=== PATIENT | female | born 1990 | race Caucasian/White ===

== ENCOUNTER 2017-09-04 15:47 | Emergency (ER) | payer OTHER ==
[2017-09-04 15:57] VITALS: RESP 16
--- NOTE | 2017-09-04 17:18 | ED ---
General Adult HPI - General Chief complaint: Psychiatric Symptoms Stated complaint: suicidal Time Seen by Provider: 09/04/17 16:08 Source: patient, family, RN notes reviewed Mode of arrival: ambulatory Limitations: no limitations - History of Present Illness Initial comments: Chief complaint and history of present illness a 27-year-old female here for complaint of depression and suicidal thoughts of driving his car into a tree. Patient reports her car didn't work very well she is not able to visit with her kids she's not able to get her psychiatric medications. The patient reports she 's had been having difficulty coping with being out of snf which she spent one year in snf up until this past June. Patient had a past history of heroin addiction. One week ago she did use amphetamine because she could not get her psychiatric medications. She states she is missing a parole visit today. - Related Data Home Medications Medication Instructions Recorded Confirmed No Known Home Medications [No 09/04/17 09/04/17 Known Home Medications] Allergies Allergy/AdvReac Type Severity Reaction Status Date / Time No Known Allergies Allergy Verified 09/04/17 16:17 Review of Systems ROS Statement: Those systems with pertinent positive or pertinent negative responses have been documented in the HPI. Review of systems. Patient denies any headache or visual acuity change no chest pain shortness breath GI/ problems. Emotionally the patient reports she is depressed and having suicidal thoughts. All systems reviewed. Past medical problems significant for depression and anxiety. Used to be on medication for bipolar disorder. She reports that she was offered medications one year prior to going to snf while in snf she was not prescribed any medications. She states that her family physician prescribed Wellbutrin and Zyprexa several weeks ago but because of problems with her insurance she was able to get them from the pharmacy. She reported that because she was depressed and anxious he did use some amphetamine. This was 1 week ago. Denies restarting heroin. The patient's surgeries are none. States she has an aortic valve issue though the heart sounds are normal to auscultation. No family history of cancers or depression. Patient denies any ALLERGIES. The patient does smoke strongly encouraged stop and denies alcohol use. ROS Other: All systems not noted in ROS Statement are negative. Past Medical History Additional Past Medical History / Comment(s): hypoglycemia, bicuspidaostic heart valve disease. OB history: she has had one previous vaginal delivery and this is second . She has had care with Dr Pimentel. History of Any Multi-Drug Resistant Organisms: None Reported Past Surgical History: No Surgical Hx Reported Past Anesthesia/Blood Transfusion Reactions: No Reported Reaction Past Psychological History: Bipolar, Depression Smoking Status: Current every day smoker Past Alcohol Use History: None Reported Past Drug Use History: None Reported - Past Family History Mother Family Medical History: No Reported History General Exam - General Exam Comments Initial Comments: General: The patient is awake and alert, states he's depressed and anxious. Has a past history of bipolar disorder. Vital signs are temperature 97.5 pulse 97 respiratory rate 16 pulse ox 90% room air blood pressure 121/91 Eye: Pupils are equal, round and reactive to light, extra-ocular movements are intact ; there is normal conjunctiva bilaterally. No signs of icterus. Ears, nose, mouth and throat: There are moist mucous membranes and no oral lesions. Neck: The neck is supple, there is no tenderness on no thyroid not enlarged, no anterior cervical lymphadenopathy. Cardiovascular: There is a regular rate and rhythm. No murmur, rub or gallop is appreciated. Respiratory: Lungs are clear to auscultation, respirations are non-labored, breath sounds are equal. No wheezes, stridor, rales, or rhonchi. Gastrointestinal: Soft, non-distended, non-tender abdomen without masses or organomegaly noted. There is no rebound or guarding present. No CVA tenderness. Bowel sounds are unremarkable. Back: There is no tenderness to palpation in the midline. There is no obvious deformity. No rashes noted. Musculoskeletal: Normal ROM, no tenderness, There is no pedal edema. There is no calf tenderness or swelling. Sensation intact. Pulses equal bilaterally 2+. Neurological: Denies any numbness or tingling. Skin: Skin is warm and dry and no rashes or lesions are noted. Psychiatric: Cooperative, states she is depressed, suicidal thoughts of running her car into a tree. Past history of heroin addiction. Spent one year in snf. Limitations: no limitations Course Vital Signs 09/04/17 15:54 Temperature 97.5 F L Pulse Rate 97 Respiratory 16 Rate Blood Pressure 121/91 O2 Sat by Pulse 98 Oximetry Medical Decision Making - Medical Decision Making Medical decision-making. This is a 27 show female here with complaint of depression. She also stated that she used methamphetamines one week ago. She went to her parole office today. Patient states she was having difficulty getting a hold of her medications. Psychiatric nurse interviewed the patient. The nurse spoke with the psychiatrist at this time the patient is being discharged to care of her fianc . She will follow up with [facility]. Also she is to call and go to the pharmacy where she had the prescriptions waiting for her and she was instructed as to how to tile picker the medications by getting her name off her mother's insurance and using her own current insurance. On discharge patient denies being suicidal. Was advised to return emergency room if she has any problems - Lab Data Lab Results 09/04/17 09/04/17 Range/Units 16:05 16:05 Urine HCG, Qual Not Detected (Not Detectd) Urine Opiates Screen Not Detected (NotDetected) Ur Oxycodone Screen Not Detected (NotDetected) Urine Methadone Screen Not Detected (NotDetected) Ur Propoxyphene Screen Not Detected (NotDetected) Ur Barbiturates Screen Not Detected (NotDetected) U Tricyclic Antidepress Not Detected (NotDetected) Ur Phencyclidine Scrn Not Detected (NotDetected) Ur Amphetamines Screen Not Detected (NotDetected) U Methamphetamines Scrn Detected H (NotDetected) U Benzodiazepines Scrn Not Detected (NotDetected) Urine Cocaine Screen Not Detected (NotDetected) U Marijuana (THC) Screen Not Detected (NotDetected) Disposition Clinical Impression: Depression, Methamphetamine abuse Disposition: HOME SELF-CARE Condition: Fair Instructions: Depression (ED) Additional Instructions: Follow-up with community mental health as arranged. Go to the pharmacy and get urine name off mother's insurance unusual home to tile picker. Medications. Follow -up with family physician. Return emergency room if he have any problems. Referrals: César Ross MD [Primary Care Provider] - 1-2 days Time of Disposition: 18:50
[2017-09-04 17:31] LABS: Amphetamine Screen,Urine Not Detected (NotDetected); Barbiturate Screen,Urine Not Detected (NotDetected); Benzodiazepines Screen,Urine Not Detected (NotDetected); Cocaine Screen,Urine Not Detected (NotDetected); Methadone Screen, Urine Not Detected (NotDetected); Opiate Screen,Urine Not Detected (NotDetected); Oxycodone Screen, Urine Not Detected (NotDetected); Phencyclidine Screen,Urine Not Detected (NotDetected); Tricyclic Antidepressant,Urine Not Detected (NotDetected); Urn Cannabinoid Scrn Not Detected (NotDetected)
[2017-09-04 18:56] VITALS: BP 112/59; PULSE 73; TEMP 97.8
== END 2017-09-04 19:02 | disposition home or self-care (01) ==
LOC: EC 15:47
DX: F32.9 Major depressive disorder, single episode, unspecified (principal); F15.10 Other stimulant abuse, uncomplicated; R45.851 Suicidal ideations; F17.200 Nicotine dependence, unspecified, uncomplicated
CPT/HCPCS: 80306; 81025; 82075; 99284

== ENCOUNTER 2017-10-08 13:09 | Emergency (ER) | payer OTHER ==
--- NOTE | 2017-10-08 13:28 | ED ---
Skin/Abscess/FB HPI - General Chief complaint: Skin/Abscess/Foreign Body Stated complaint: Infected Tattoo Time Seen by Provider: 10/08/17 13:22 Source: patient, RN notes reviewed Mode of arrival: ambulatory Limitations: no limitations - History of Present Illness Initial comments: This is a 27-year-old female who presents to the emergency department with chief complaint of infected tattoo. Patient states that 2 nights ago she was at friends house and received a tattoo on the top of her right foot. Patient states that since that time there has been pain and swelling. Patient states that she has difficulty ambulating due to the pain. She states that she has been taking ibuprofen. Patient does admit to being intoxicated at the time and she states she wishes she had not gotten a tattoo. Denies any fevers or chills , chest pain or shortness breath, abdominal pain, nausea or vomiting. - Related Data Previous Rx's Medication Instructions Recorded Cephalexin [Keflex] 500 mg PO Q12HR #20 cap 10/08/17 Sulfamethox-Tmp 800-160Mg [Bactrim 1 tab PO Q12HR #20 tab 10/08/17 DS 800-160 mg] Allergies Allergy/AdvReac Type Severity Reaction Status Date / Time No Known Allergies Allergy Verified 09/04/17 16:17 Review of Systems ROS Statement: Those systems with pertinent positive or pertinent negative responses have been documented in the HPI. ROS Other: All systems not noted in ROS Statement are negative. Past Medical History Additional Past Medical History / Comment(s): hypoglycemia, bicuspidaostic heart valve disease. OB history: she has had one previous vaginal delivery and this is second . She has had care with Dr Pimentel. History of Any Multi-Drug Resistant Organisms: None Reported Past Surgical History: No Surgical Hx Reported Past Anesthesia/Blood Transfusion Reactions: No Reported Reaction Past Psychological History: Bipolar, Depression Smoking Status: Current every day smoker Past Alcohol Use History: None Reported Past Drug Use History: None Reported - Past Family History Mother Family Medical History: No Reported History General Exam - General Exam Comments Initial Comments: General: Awake and alert, well-developed; in no apparent distress. HEENT: Head atraumatic, normocephalic. Pupils are equal, round and reactive to light. Extraocular movements intact. Oropharynx moist without erythema or exudate. Neck: Supple. Normal ROM. Cardiovascular: Regular rate and rhythm. No murmurs, rubs or gallops. Chest symmetrical. Respiratory: Lungs clear to auscultation bilaterally. No wheezes, rales or rhonchi. Normal respiratory effort with no use of accessory muscles. Musculoskeletal: Normal range of motion of the right foot. There is a new tattoo overlying dorsal aspect of the right foot with surrounding erythema, swelling and warmth. Sensation is intact. Pedal pulses are 2+ equal and palpable bilaterally. Skin: [place], warm and dry. Neurological: Alert and oriented x3. CN II-XII grossly intact. Speech is fluent and answers are appropriate. No focal neuro deficits. Psychiatric: Normal mood and affect. No overt signs of depression or anxiety noted. Course Vital Signs 10/08/17 13:22 Temperature 97.3 F L Pulse Rate 92 Respiratory 18 Rate Blood Pressure 120/58 O2 Sat by Pulse 97 Oximetry Medical Decision Making - Medical Decision Making This is a 27-year-old female who presents to the emergency department with chief complaint of infected tattoo. Patient received a a tattoo on the dorsal aspect of her right foot 2 nights ago by a friend. Patient's right foot is now swollen, erythematous, warm and tender. No fever or chills. Patient will be started on Bactrim and Keflex. I educated patient that she needs to take the full course of antibiotics. She is to return to the emergency department if there are worsening in symptoms or if she notices red streaking on her leg. Patient is in agreement. She is in no acute distress and will be discharged home. All questions answered. Disposition Clinical Impression: Cellulitis of foot, Tattoo reaction Disposition: HOME SELF-CARE Condition: Good Instructions: Cellulitis (ED) Additional Instructions: Please monitor and return to the emergency department if you notice any red streaking of the leg. Please apply ice. Please take medications as prescribed. Please follow up with primary care provider within 1-2 days. Return to emergency department if symptoms should worsen or any concerns arise. Prescriptions: Cephalexin [Keflex] 500 mg PO Q12HR #20 cap Sulfamethox-Tmp 800-160Mg [Bactrim DS 800-160 mg] 1 tab PO Q12HR #20 tab Referrals: César Ross MD [Primary Care Provider] - 1-2 days Time of Disposition: 13:41
[2017-10-08 13:29] VITALS: TEMP 97.3
[2017-10-08 13:50] VITALS: BP 127/87; PULSE 87; RESP 17
== END 2017-10-08 13:48 | disposition home or self-care (01) ==
LOC: EC 13:09
DX: L03.115 Cellulitis of right lower limb (principal); L81.8 Other specified disorders of pigmentation
CPT/HCPCS: 99283

== ENCOUNTER 2019-11-22 08:11 | Emergency (ER) | payer OTHER ==
[2019-11-22 08:18] VITALS: RESP 18
[2019-11-22] MEDS ORDERED: SODIUM CHLORIDE 0.9% 1,000 ML IV STA ×2 (08:28)
[2019-11-22] MEDS ORDERED: LORazepam 2 MG/ML INJ IV STA (08:29)
--- NOTE | 2019-11-22 08:35 | ED ---
Weakness HPI - General Chief complaint: Weakness Stated complaint: altered Time Seen by Provider: 11/22/19 08:20 Source: patient, RN notes reviewed, old records reviewed Mode of arrival: wheelchair Limitations: no limitations - History of Present Illness Initial comments: Patient is a 29-year-old female who presents emergency department today with multiple complaints. She states that she still somewhat disoriented and having convulsions and shaking. She does report taking "acid" 10 hours ago and using marijuana. She reports that she takes acid frequently does not had a bad experience such as this today. Patient states that she has also been treated for trichomonas recently complains some lower abdominal pain and dysuria. She also states that her last menstrual period was a week ago. She states that she's feeling slightly dizzy and lightheaded and anxious. - Related Data Previous Rx's Medication Instructions Recorded Doxycycline [Vibramycin] 100 mg PO BID 14 Days #28 capsule 11/22/19 Allergies Allergy/AdvReac Type Severity Reaction Status Date / Time No Known Allergies Allergy Verified 11/22/19 08:58 Review of Systems ROS Statement: Those systems with pertinent positive or pertinent negative responses have been documented in the HPI. ROS Other: All systems not noted in ROS Statement are negative. Past Medical History Additional Past Medical History / Comment(s): hypoglycemia, bicuspidaostic heart valve disease. OB history: she has had one previous vaginal delivery and this is second . She has had care with Dr Pimentel. History of Any Multi-Drug Resistant Organisms: None Reported Past Surgical History: No Surgical Hx Reported Past Anesthesia/Blood Transfusion Reactions: No Reported Reaction Past Psychological History: Bipolar, Depression Smoking Status: Current every day smoker Past Alcohol Use History: None Reported Past Drug Use History: None Reported - Past Family History Mother Family Medical History: No Reported History General Exam - General Exam Comments Initial Comments: 21-year-old female. Alert and oriented. Somewhat anxious. Limitations: no limitations General appearance: alert, in no apparent distress Head exam: Present: atraumatic, normocephalic, normal inspection Eye exam: Present: normal appearance, PERRL, EOMI. Absent: scleral icterus, conjunctival injection, periorbital swelling ENT exam: Present: normal exam, mucous membranes moist Neck exam: Present: normal inspection. Absent: tenderness, meningismus, lymphadenopathy Respiratory exam: Present: normal lung sounds bilaterally. Absent: respiratory distress, wheezes, rales, rhonchi, stridor Cardiovascular Exam: Present: regular rate, normal rhythm, normal heart sounds. Absent: systolic murmur, diastolic murmur, rubs, gallop, clicks GI/Abdominal exam: Present: soft, normal bowel sounds. Absent: distended, tenderness, guarding, rebound, rigid Extremities exam: Present: normal inspection, full ROM, normal capillary refill. Absent: tenderness, pedal edema, joint swelling, calf tenderness Back exam: Present: normal inspection Neurological exam: Present: alert, oriented X3, CN II-XII intact Psychiatric exam: Present: normal affect, normal mood Skin exam: Present: warm, dry, intact, normal color. Absent: rash Course Vital Signs 11/22/19 08:12 Temperature 98.1 F Pulse Rate 92 Respiratory 18 Rate Blood Pressure 120/76 O2 Sat by Pulse 100 Oximetry EKG Findings - EKG Comments: EKG Findings:: EKG shows normal sinus rhythm, normal EKG. Ventricular rate of 73 bpm. Intervals 126 ms. QS duration 76 ms. QTC is 426/469 ms. Medical Decision Making - Medical Decision Making Patient is a 29-year-old female, presents emergency Department somewhat anxious, agitated panicky. She does report to using acid last night. She's been feeling this way the past few hours. Patient seems to be having a panic attack related to acid intake. She also complains of some dysuria, and lower abdominal pain. She was treated with Flagyl for Trichomonas. It is unsure Patient was treated for other STDs. I discussed that we'll complete treatment this time since she is not aware of getting Rocephin or azithromycin. We will do urine culture and also discharge Patient with prescription for doxycycline for UTI and to cover for possible PID. She had no abdominal tenderness on exam. Patient advised to follow-up with a hardboard panel printer and to return to emergency department if any alarming signs or symptoms occur. - Lab Data Result diagrams: 11/22/19 08:41 11/22/19 08:41 Lab Results 11/22/19 11/22/19 11/22/19 Range/Units 08:40 08:41 08:41 WBC 12.2 H (3.8-10.6) k/uL RBC 5.17 (3.80-5.40) m/uL Hgb 10.5 L (11.4-16.0) gm/dL Hct 35.8 (34.0-46.0) % MCV 69.3 L (80.0-100.0) fL MCH 20.2 L (25.0-35.0) pg MCHC 29.2 L (31.0-37.0) g/dL RDW 16.5 H (11.5-15.5) % Plt Count 354 (150-450) k/uL Neutrophils % 82 % Lymphocytes % 12 % Monocytes % 5 % Eosinophils % 0 % Basophils % 0 % Neutrophils # 10.0 H (1.3-7.7) k/uL Lymphocytes # 1.5 (1.0-4.8) k/uL Monocytes # 0.6 (0-1.0) k/uL Eosinophils # 0.0 (0-0.7) k/uL Basophils # 0.0 (0-0.2) k/uL Hypochromasia Marked Anisocytosis Slight Microcytosis Marked Sodium 139 (137-145) mmol/L Potassium 4.0 (3.5-5.1) mmol/L Chloride 107 (98-107) mmol/L Carbon Dioxide 19 L (22-30) mmol/L Anion Gap 13 mmol/L BUN 12 (7-17) mg/dL Creatinine 0.65 (0.52-1.04) mg/dL Est GFR (CKD-EPI)AfAm >90 (>60 ml/min/1.73 sqM) Est GFR (CKD-EPI)NonAf >90 (>60 ml/min/1.73 sqM) Glucose 110 H (74-99) mg/dL Calcium 9.5 (8.4-10.2) mg/dL Magnesium 1.9 (1.6-2.3) mg/dL Total Bilirubin 0.3 (0.2-1.3) mg/dL AST 26 (14-36) U/L ALT 14 (4-34) U/L Alkaline Phosphatase 70 (38-126) U/L Total Protein 8.4 H (6.3-8.2) g/dL Albumin 4.8 (3.5-5.0) g/dL HCG, Qual Not Detected Urine Color Yellow Urine Appearance Cloudy H (Clear) Urine pH 5.5 (5.0-8.0) Ur Specific [place] 1.018 (1.001-1.035) Urine Protein Trace H (Negative) Urine Glucose (UA) Negative (Negative) Urine Ketones Trace H (Negative) Urine Blood Small H (Negative) Urine Nitrite Negative (Negative) Urine Bilirubin Negative (Negative) Urine Urobilinogen <2.0 (<2.0) mg/dL Ur Leukocyte Esterase Large H (Negative) Urine RBC 5 (0-5) /hpf Urine WBC 8 H (0-5) /hpf Ur Squamous Epith Cells 28 H (0-4) /hpf Urine Bacteria Rare H (None) /hpf Urine Mucus Many H (None) /hpf Urine Opiates Screen Not Detected (NotDetected) Ur Oxycodone Screen Not Detected (NotDetected) Urine Methadone Screen Not Detected (NotDetected) Ur Propoxyphene Screen Not Detected (NotDetected) Ur Barbiturates Screen Not Detected (NotDetected) U Tricyclic Antidepress Not Detected (NotDetected) Ur Phencyclidine Scrn Not Detected (NotDetected) Ur Amphetamines Screen Not Detected (NotDetected) U Methamphetamines Scrn Not Detected (NotDetected) U Benzodiazepines Scrn Not Detected (NotDetected) Urine Cocaine Screen Not Detected (NotDetected) U Marijuana (THC) Screen Detected H (NotDetected) - Radiology Data Radiology results: report reviewed Normal chest x-ray. Disposition Clinical Impression: LSD reaction, Panic anxiety syndrome, UTI (urinary tract infection) Disposition: HOME SELF-CARE Condition: Good Instructions (If sedation given, give patient instructions): Urinary Tract Infection in Women (ED) Additional Instructions: Please use medication as discussed. Please follow up with family doctor if symptoms have not improved over the next two days. Please return to the emergency room if your symptoms increase or worsen or for any other concerns. Prescriptions: Doxycycline [Vibramycin] 100 mg PO BID 14 Days #28 capsule Is patient prescribed a controlled substance at d/c from ED?: No Referrals: César Ross MD [STAFF PHYSICIAN] - 1-2 days Time of Disposition: 10:01
[2019-11-22 08:51] LABS: Anisocytosis Slight; Basophils % (A) 0 %; Eosinophils % (A) 0 %; HCT 35.8 % (34.0-46.0); HGB 10.5 gm/dL (11.4-16.0); Hypochromasia Marked; Lymphocytes # (A) 1.5 k/uL (1.0-4.8); Lymphocytes % (A) 12 %; MCH 20.2 pg (25.0-35.0); MCHC 29.2 g/dL (31.0-37.0); MCV 69.3 fL (80.0-100.0); Mean Platelet Volume 7.6; Microcytosis Marked; Monocytes # (A) 0.6 k/uL (0-1.0); Monocytes % (A) 5 %; Neutrophils % (A) 82 %; Platelet Count 354 k/uL (150-450); RBC 5.17 m/uL (3.80-5.40); RDW 16.5 % (11.5-15.5); WBC 12.2 k/uL (3.8-10.6)
[2019-11-22 08:59] LABS: HCG,Qualitative Serum Not Detected
[2019-11-22 09:04] LABS: ALT 14 U/L (4-34); AST 26 U/L (14-36); African American GFR (CKD) >90 (>60 ml/min/1.73 sqM); Albumin 4.8 g/dL (3.5-5.0); Alkaline Phosphatase 70 U/L (38-126); Anion Gap 13 mmol/L; Blood Urea Nitrogen 12 mg/dL (7-17); Calcium 9.5 mg/dL (8.4-10.2); Carbon Dioxide 19 mmol/L (22-30); Chloride 107 mmol/L (98-107); Glucose 110 mg/dL (74-99); Magnesium 1.9 mg/dL (1.6-2.3); Non-African American GFR(CKD) >90 (>60 ml/min/1.73 sqM); Sodium 139 mmol/L (137-145); Total Bilirubin 0.3 mg/dL (0.2-1.3); Total Protein 8.4 g/dL (6.3-8.2)
[2019-11-22 09:06] LABS: Appearance,Urine Cloudy (Clear); Bacteria,Urine Rare /hpf; Bilirubin,Urine Negative (Negative); Blood,Urine Small (Negative); Color,Urine Yellow; Glucose,Urine (UA) Negative (Negative); Ketones,Urine Trace (Negative); Leukocyte Esterase,Urine Large (Negative); Mucus,Urine Many /hpf; Nitrite,Urine Negative (Negative); PH, Urine 5.5 (5.0-8.0); Protein,Urine Trace (Negative); RBC,Urine 5 /hpf (0-5); Specific Gravity,Urine 1.018 (1.001-1.035); Squamous Epithelial Cell,Urine 28 /hpf (0-4); Urobilinogen,Urine <2.0 mg/dL (<2.0); WBC,Urine 8 /hpf (0-5)
[2019-11-22 09:08] LABS: Amphetamine Screen,Urine Not Detected (NotDetected); Barbiturate Screen,Urine Not Detected (NotDetected); Benzodiazepines Screen,Urine Not Detected (NotDetected); Cocaine Screen,Urine Not Detected (NotDetected); Methadone Screen, Urine Not Detected (NotDetected); Opiate Screen,Urine Not Detected (NotDetected); Oxycodone Screen, Urine Not Detected (NotDetected); Phencyclidine Screen,Urine Not Detected (NotDetected); Tricyclic Antidepressant,Urine Not Detected (NotDetected); Urn Cannabinoid Scrn Detected (NotDetected)
--- NOTE | 2019-11-22 09:16 | XR ---
EXAMINATION TYPE: XR chest 2V DATE OF EXAM: 11/22/2019 COMPARISON: 10/24/2015 HISTORY: Chest pain TECHNIQUE: Frontal and lateral views of the chest are obtained. FINDINGS: There is no focal air space opacity. No evidence for pneumothorax. No pleural effusion. The cardiac silhouette size is within normal limits. The osseous structures are grossly intact. IMPRESSION: 1. No acute cardiopulmonary process.
[2019-11-22] MEDS ORDERED: AZITHROMYCIN 500 MG TAB PO STA (10:03)
[2019-11-22] MEDS ORDERED: cefTRIAXone 250 MG VIAL IM STA (10:03)
[2019-11-22 10:23] VITALS: BP 118/72; PULSE 84; TEMP 98.4
== END 2019-11-22 10:23 | disposition home or self-care (01) ==
LOC: EC 08:11
DX: F16.90 Hallucinogen use, unspecified, uncomplicated (principal); F41.0 Panic disorder [episodic paroxysmal anxiety]; N39.0 Urinary tract infection, site not specified; F17.200 Nicotine dependence, unspecified, uncomplicated
CPT/HCPCS: 36415; 93005; 80053; 83735; 85025; 81001; 84703; 87491; 87591; 86780; 80306; 87086; 71046; 99285; 96374; 96361 ×2; 96372; J2060; J0696

== ENCOUNTER 2020-11-27 08:15 | Emergency (ER) | payer OTHER ==
[2020-11-27 08:19] VITALS: BP 120/72; PULSE 99; RESP 18; TEMP 97.5
--- NOTE | 2020-11-27 08:39 | XR ---
EXAMINATION TYPE: XR hand complete RT DATE OF EXAM: 11/27/2020 COMPARISON: NONE HISTORY: 30-year-old female pain after fall TECHNIQUE: 3 views FINDINGS: No acute fracture, subluxation, or dislocation is seen. Joint spaces throughout are maintained. IMPRESSION: No acute osseous abnormality seen.
--- NOTE | 2020-11-27 08:46 | ED ---
General Adult HPI - General Chief complaint: Extremity Injury, Upper Stated complaint: fell off horse/hand injury Time Seen by Provider: 11/27/20 08:20 Source: patient, RN notes reviewed, old records reviewed Mode of arrival: ambulatory Limitations: no limitations - History of Present Illness Initial comments: 30-year-old female with right hand injury. Patient was riding a horse yesterday evening, fell off injuring her right hand. She's had increased pain and swelling in the hand since the injury. She did have a minor head injury as well, no LOC. No anticoagulation. No other pain complaints besides her hand. - Related Data Previous Rx's Medication Instructions Recorded Doxycycline [Vibramycin] 100 mg PO BID 14 Days #28 capsule 11/22/19 Allergies Allergy/AdvReac Type Severity Reaction Status Date / Time No Known Allergies Allergy Verified 11/27/20 08:19 Review of Systems ROS Statement: Those systems with pertinent positive or pertinent negative responses have been documented in the HPI. ROS Other: All systems not noted in ROS Statement are negative. Past Medical History Additional Past Medical History / Comment(s): hypoglycemia, bicuspidaortic heart valve disease. OB history: she has had one previous vaginal delivery and this is second . She has had care with Dr Pimentel. History of Any Multi-Drug Resistant Organisms: None Reported Past Surgical History: No Surgical Hx Reported Past Anesthesia/Blood Transfusion Reactions: No Reported Reaction Past Psychological History: Bipolar, Depression Smoking Status: Current every day smoker Past Alcohol Use History: Occasional Past Drug Use History: Marijuana - Past Family History Mother Family Medical History: No Reported History General Exam Limitations: no limitations General appearance: alert, in no apparent distress Head exam: Present: normocephalic, other (Small frontal hematoma) Eye exam: Present: normal appearance, PERRL ENT exam: Present: normal exam Neck exam: Present: normal inspection. Absent: tenderness, meningismus Respiratory exam: Present: normal lung sounds bilaterally. Absent: respiratory distress, wheezes Cardiovascular Exam: Present: regular rate, normal rhythm GI/Abdominal exam: Present: soft. Absent: distended, tenderness, guarding Extremities exam: Present: other (Soft tissue swelling in the right hand. There is no deformity. There is decreased range of motion of the third fourth and fifth digit secondary to pain.) Course Vital Signs 11/27/20 08:15 Temperature 97.5 F L Pulse Rate 99 Respiratory 18 Rate Blood Pressure 120/72 O2 Sat by Pulse 96 Oximetry Procedures - Orthopedic Splinting/Casting Injury #1 Side: right Upper Extremity Injury Location: hand Upper Extremity Immobilizer: ulnar gutter Medical Decision Making - Medical Decision Making 30-year-old female with right hand injury. There is soft tissue swelling. No gross deformity. X-ray negative for fracture or dislocation. Patient is placed in an ulnar gutter for immobilization. She is instructed to follow-up with her primary care physician, may require repeat imaging in one week if symptoms persist. Disposition Clinical Impression: Hand sprain, Hand contusion Disposition: HOME SELF-CARE Condition: Good Instructions (If sedation given, give patient instructions): Hand Sprain (ED) Is patient prescribed a controlled substance at d/c from ED?: No Referrals: Forest Webber Jr, DO [Primary Care Provider] - 1-2 days Time of Disposition: 08:46
== END 2020-11-27 09:05 | disposition home or self-care (01) ==
LOC: EC 08:15
DX: S63.91XA Sprain of unspecified part of right wrist and hand, initial encounter (principal); V80.010A Animal-rider injured by fall from or being thrown from horse in noncollision accident, initial encounter; Y93.52 Activity, horseback riding
CPT/HCPCS: 29125; 99283

== ENCOUNTER → 2021-08-01 | Outpatient (CLI) | payer OTHER ==
[2021-08-01 12:52] LABS: Anisocytosis Slight; Basophils % (A) 0 %; Eosinophils # (A) 0.2 k/uL (0-0.7); Eosinophils % (A) 2 %; HCT 40.3 % (34.0-46.0); HGB 12.4 gm/dL (11.4-16.0); Hypochromasia Marked; Lymphocytes # (A) 2.1 k/uL (1.0-4.8); Lymphocytes % (A) 27 %; MCH 24.6 pg (25.0-35.0); MCHC 30.7 g/dL (31.0-37.0); MCV 80.1 fL (80.0-100.0); Mean Platelet Volume 7.9; Microcytosis Slight; Monocytes # (A) 0.4 k/uL (0-1.0); Monocytes % (A) 5 %; Neutrophils # (A) 4.9 k/uL (1.3-7.7); Neutrophils % (A) 64 %; Platelet Count 222 k/uL (150-450); RBC 5.03 m/uL (3.80-5.40); RDW 19.5 % (11.5-15.5); WBC 7.7 k/uL (3.8-10.6)
== END | disposition home or self-care (01) ==
LOC: LABPAT 11:36
PROVIDERS: ATTEND Obstetrics & Gynecology
DX: Z01.812 Encounter for preprocedural laboratory examination (principal)
CPT/HCPCS: 85025

== ENCOUNTER 2021-08-02 09:46 | Day surgery (SDC) | payer OTHER ==
[2021-08-01 13:23] VITALS: BMI 29.9
--- NOTE | 2021-08-01 18:14 | P.HPOB ---
History of Present Illness H&P Date: 08/01/21 Chief Complaint: Blighted ovum This is a 30-year-old female 4 para 2 who presents for suction dilation and curettage due to blighted ovum seen on ultrasound. She had an repeat ultrasound done today that showed a 6 week 4 day sac with no pole or yolk sac and this has been the same for the last 3 weeks. Her beta hCG levels have been increasing and on 1220 was up to 21,164 but it has not been doubling in the normal timeframe. Her blood type is O+. She has been having some light bleeding and severe cramping. Obstetrical history: She does have a history of 2 vaginal deliveries at term. She also has a history of 1 miscarriage that did not require dilation and curettage. Gynecologic history: History of genital warts that have been treated. Social history: She is single. 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 Review of Systems Constitutional: Denies chills, Denies fever Eyes: denies blurred vision, denies pain Ears, nose, mouth and throat: Denies headache, Denies sore throat Cardiovascular: Denies chest pain, Denies shortness of breath Respiratory: Denies cough Gastrointestinal: Denies abdominal pain, Denies diarrhea, Denies nausea, Denies vomiting Genitourinary: Reports abnormal vaginal bleeding, Reports pelvic pain, Reports Musculoskeletal: Reports low back pain Integumentary: Denies pruritus, Denies rash Neurological: Denies numbness, Denies weakness Past Medical History Past Medical History: Hypertension Additional Past Medical History / Comment(s): hypoglycemia, bicuspid aortic heart valve-monitored by SIGIFREDO Negro, took BP med during last but not needed since, some vag. spotting History of Any Multi-Drug Resistant Organisms: None Reported Past Surgical History: No Surgical Hx Reported Additional Past Surgical History / Comment(s): wisdom teeth removed Past Anesthesia/Blood Transfusion Reactions: No Reported Reaction Smoking Status: Current every day smoker Past Alcohol Use History: None Reported Past Drug Use History: Marijuana (Daily) Additional Drug Use History / Comment(s): History of abuse - Past Family History Mother Family Medical History: No Reported History Medications and Allergies Home Medications Medication Instructions Recorded Confirmed Type Pnv No.95/Ferrous Fum/Folic AC 1 each PO DAILY 08/01/21 08/01/21 History [ Multivitamin Tablet] Allergies Allergy/AdvReac Type Severity Reaction Status Date / Time No Known Allergies Allergy Verified 08/01/21 12:51 Exam Osteopathic Statement: *. No significant issues noted on an osteopathic structural exam other than those noted in the History and Physical/Consult. Intake and Output 08/01/21 08/01/21 08/01/21 06:59 14:59 22:59 Other: Weight 69.4 kg HEENT: Within normal limits Heart: Regular rate and rhythm Lungs: Clear to auscultation bilaterally Abdomen: Soft, nontender Pelvic exam: Uterus is slightly enlarged, mildly tender, with no adnexal masses palpated, but mild bilateral tenderness. Scant amount of bloody discharge is noted. Extremities: Negative Homans Assessment and Plan (1) Blighted ovum Status: Acute Code(s): O02.0 - BLIGHTED OVUM AND NONHYDATIDIFORM MOLE SNOMED Code(s): 24576118 Plan: Proceed with suction dilation and curettage. I have discussed the risks, benefits, and alternative therapies for the above- mentioned procedure and for both sedation/anesthesia as well as necessary blood products administration, if indicated, as they pertain to this patient. The patient has indicated her understanding and acceptance of the risks and procedures discussed.
[~2021-08-02 09:46] MED LIST: Pre Op ABX Message 1 EACH MISC MISCELLANE ONE
[2021-08-02] MEDS ORDERED: ONDANSETRON 4 MG/2 ML VIAL ONE (10:36)
[2021-08-02] MEDS ORDERED: LACTATED RINGERS 1,000 ML IV ONE (10:40)
[2021-08-02] MEDS ORDERED: DEXAMETHASONE SOD PHOSPHATE 4 MG/ML 1 ML VIAL IVP ONE (10:43)
[2021-08-02] MEDS ORDERED: LIDOCAINE 1% INJ 10MG/ML (20 ML MDV) ONE (10:46)
[2021-08-02] MEDS ORDERED: MIDAZOLAM 2 MG/2 ML VIAL ONE (10:46)
[2021-08-02] MEDS ORDERED: SUCCINYLCHOLINE CHLORIDE 100 MG/5 ML SYR IV ONE (10:46)
[2021-08-02] MEDS ORDERED: fentaNYL (PF) 50 MCG/ML 2 ML AMP ONE (10:46)
[2021-08-02] MEDS ORDERED: PROPOFOL 10 MG/ML 20 ML VIAL IV ONE (10:46)
--- NOTE | 2021-08-02 11:12 | P.OP ---
Date of Procedure: 08/02/21 Preoperative Diagnosis: Blighted ovum Postoperative Diagnosis: Same Procedure(s) Performed: Suction dilation and curettage Anesthesia: IVAN Surgeon: Peggy Pimentel Estimated Blood Loss (ml): 5 Pathology: other (Products of conception) Condition: stable Disposition: same day Indications for Procedure: This is a 30-year-old female 4 para 2 who presents for suction dilation and curettage due to blighted ovum seen on ultrasound. She had an repeat ultrasound done today that showed a 6 week 4 day sac with no pole or yolk sac and this has been the same for the last 3 weeks. Her beta hCG levels have been increasing and on 1220 was up to 21,164 but it has not been doubling in the normal timeframe. Her blood type is O+. She has been having some light bleeding and severe cramping. Operative Findings: Uterus is anteverted, sounded to 10 cm. No adnexal masses are palpated. A large amount of products of conception are obtained. Description of Procedure: The patient is taken to the operating room where she is placed in the dorsal lithotomy position. She is prepped and draped in the normal sterile fashion. Her bladder is drained with a catheter. Examination is performed under anesthesia. Uterus is found to be small, anteverted, with no adnexal masses palpated. A weighted speculum was placed in the patient's vagina and a right angle retractor was used to visualize the cervix. The anterior lip of the cervix was grasped with a single-tooth tenaculum. Uterus is sounded to 10 cm. Cervix is gently dilated with Sheehan dilators and tilt a 9 mm curved suction curet could be placed. Suction curetting was performed with a large amount of exit conception obtained. Next a large curet was gently placed and gentle curettage was performed with no further tissue obtained. Suction curetting was performed one further time to remove any blood clot. Next the single-tooth tenaculum was removed and pressure was applied. All sponges are removed from the vagina. No active bleeding is noted. All instruments are removed. All sponge counts are correct. The patient is then taken to recovery room in stable condition.
[2021-08-02 11:24] VITALS: TEMP 97.7
[2021-08-02] MEDS ORDERED: HYDROmorphone 0.5 MG/0.5 ML SYRINGE IVP ONE (11:40)
[2021-08-02] MEDS ORDERED: KETOROLAC 15 MG/ML 1 ML VIAL IVP ONE (11:46)
[2021-08-02 12:35] VITALS: BP 109/66; PULSE 60; RESP 18
== END 2021-08-02 12:42 | disposition home or self-care (01) ==
LOC: OR 09:46
PROVIDERS: ATTEND Obstetrics & Gynecology
DX: O02.0 Blighted ovum and nonhydatidiform mole (principal); Q23.1 Congenital insufficiency of aortic valve; I10 Essential (primary) hypertension; F17.210 Nicotine dependence, cigarettes, uncomplicated; F31.9 Bipolar disorder, unspecified
CPT/HCPCS: 86900; 86901; 88305; 86850; 59812; J2250; J1100; J2405; J2001; J3010; J1885; J0330; J2704; J1170

== ENCOUNTER → 2022-01-02 | Outpatient (CLI) | payer OTHER ==
--- NOTE | 2022-01-03 07:31 | US ---
EXAMINATION TYPE: Transabdominal DATE OF EXAM: 01/02/2022 3:49 PM COMPARISON: NONE CLINICAL HISTORY: Z36.89 ENCOUNTER FOR OTHER SPECIFIED . Dates. EXAM PERFORMED: Transabdominal (TA) EXAM MEASUREMENTS: GESTATIONAL AGE / DATING Physician Established: Not yet established Dates by LMP: (9 weeks/2 days) EDC: 08/05/2022 Dates by First Scan: No previous this is first scan Dates by Current Scan for: (9 weeks/3 days) EDC: 08/04/2022 MATERNAL ANATOMY Uterus: 10.9 x 8.1 x 6.4 cm Right Ovary: 2.7 x 1.6 x 1.6 cm Left Ovary: 2.3 x 1.6 x 1.6 cm Post CDS / Adnexa: no free fluid Presence of free fluid: no Presence of corpus luteal cyst: left ovary= 1.5 x 1.4 x 1.4 cm Presence of subchorionic bleed: no GESTATION / SURVEY CRL: 2.7 cm (9 weeks/3 days) MSD: Seen, not measured Yolk Sac (normal less than 6mm): 3.7 mm Heart Rate: 160 bpm Rhythm: Normal IUP: Viable IUP Date of LMP: 10/29/2021, Beta HcG (if available): Not available at this time Single live IUP measuring 9 weeks 3 days. IMPRESSION: Single intrauterine gestation estimated at 9 weeks 3 days gestation based on crown-rump length. Cardi ac activity was 60 bpm.
== END | disposition home or self-care (01) ==
LOC: RADUSWWP 15:31
PROVIDERS: ATTEND Obstetrics & Gynecology
DX: Z36.89 Encounter for other specified antenatal screening (principal); Z3A.09 9 weeks gestation of pregnancy
CPT/HCPCS: 76801

== ENCOUNTER 2022-06-23 09:55 | Outpatient (CLI) | payer OTHER ==
[2022-06-23] MEDS ORDERED: LACTATED RINGERS 1,000 ML IV SCH (11:15)
[2022-06-23 11:43] LABS: Basophils # (A) 0.1 k/uL (0-0.2); Basophils % (A) 1 %; Eosinophils # (A) 0.1 k/uL (0-0.7); Eosinophils % (A) 1 %; HCT 35.6 % (34.0-46.0); HGB 12.2 gm/dL (11.4-16.0); Lymphocytes # (A) 1.7 k/uL (1.0-4.8); Lymphocytes % (A) 12 %; MCH 30.9 pg (25.0-35.0); MCHC 34.2 g/dL (31.0-37.0); MCV 90.5 fL (80.0-100.0); Mean Platelet Volume 8.8; Monocytes # (A) 0.7 k/uL (0-1.0); Monocytes % (A) 5 %; Neutrophils # (A) 11.9 k/uL (1.3-7.7); Neutrophils % (A) 82 %; Platelet Count 138 k/uL (150-450); RBC 3.93 m/uL (3.80-5.40); RDW 13.4 % (11.5-15.5); WBC 14.6 k/uL (3.8-10.6)
[2022-06-23 12:28] VITALS: BP 102/54; PULSE 73; RESP 18; TEMP 98.2
--- NOTE | 2022-06-24 02:59 | P.MSEPDOC ---
Presenting Problems - Arrival Data Date of Arrival on Unit: 06/23/22 Time of Arrival on Unit: 09:55 Mode of Transport: Ambulatory - Complaint OB-Reason for Admission/Chief Complaint: Rule Out SROM, Acute Nausea/Vomiting, Headache Comment: Pt admit with leaking, contractions last night, covid symptoms. RSV + today & no cervical change. Medical History - Information : 4 Para: 2 Number of Living Children: 2 - Gestational Age Gestational Age by MIAH (wks/days): 33 Weeks and 6 Days - History Complications: Smoker Comment: +vaper Review of Systems - Review of Systems Constitutional: No problems Breast: No problems ENT: No problems Cardiovascular: No problems Respiratory: No problems Gastrointestinal: No problems Genitourinary: No problems Musculoskeletal: No problems Neurological: No problems Skin: No problems Vital Signs - Temperature Temperature: 98.2 F Temperature Source: Oral - Pulse Brachial Pulse Rate: 73 Pulse Assessment Method: Automatic Cuff - Respirations Respiratory Rate: 18 Oxygen Delivery Method: Room Air O2 Sat by Pulse Oximetry: 97 - Blood Pressure Right Arm Sitting Blood Pressure: 102/54 Blood Pressure Mean: 70 Blood Pressure Source: Automatic Cuff Medical Screen Scoring - Cervical Exam Dilation (cm): 1.5 Effacement (%): 50 Station: -2 Membranes: Intact - Assessment - Baby A Baseline FHR: 120 Heart Rate - NICHD Category: Category I (Normal) NST: Reactive Physician Notification - Physician Notified Physician Notified Date: 06/23/22 Physician Notified Time: 12:00 Physician: Peggy Pimentel New Order Received: Yes - Notification Comment Comment: RSV +, ok to dc home. Rest and increase hydration, Follow up in the office as scheduled. Maternal Triage Index - Urgent/Priority 2 Urgent Priority 2: Yes Provider Notified: Peggy Pimentel Provider Notified Time: 10:48 Criteria Met for Priority 2: amnisure neg, irreg cx, cx 1.5/50/-2, no change since last office visit Disposition - Disposition OB Disposition: Discharge to home Discharge Date: 06/23/22 Discharge Time: 12:10 I agree with the RN Medical Screening Exam: Yes Case reviewed; plan agreed upon as documented in EMR&OBIX.: Yes Diagnosis: ACUTE UPPER RESPIRATORY INFECTION, UNSPECIFIED
== END 2022-06-23 12:10 | disposition home or self-care (01) ==
LOC: FBPOP 09:55
PROVIDERS: ATTEND Obstetrics & Gynecology
DX: O26.893 Other specified pregnancy related conditions, third trimester (principal); Z3A.33 33 weeks gestation of pregnancy; J06.9 Acute upper respiratory infection, unspecified; F17.200 Nicotine dependence, unspecified, uncomplicated
CPT/HCPCS: 59025; 96360; 84112; 85025; 87636; G0463; 99214

== ENCOUNTER 2022-07-21 01:36 | Outpatient (CLI) | payer OTHER ==
[2022-07-21 02:58] VITALS: BP 109/62; PULSE 81; RESP 18; TEMP 97.6
--- NOTE | 2022-08-06 21:21 | P.MSEPDOC ---
Presenting Problems - Arrival Data Date of Arrival on Unit: 07/21/22 Time of Arrival on Unit: 01:36 Mode of Transport: Wheelchair - Complaint OB-Reason for Admission/Chief Complaint: Possible Onset of Labor Comment: cx 3-5mins apart since 2144 Medical History - Information : 4 Para: 2 Term: 2 : 0 Abortions: Spontaneous or Elective: 1 Number of Living Children: 2 - Gestational Age Gestational Age by MIAH (wks/days): 37 Weeks and 6 Days - History Complications: Smoker Comment: cigarettes, marijuana, and vapes Review of Systems - Review of Systems Constitutional: No problems Breast: No problems ENT: No problems Cardiovascular: No problems Respiratory: No problems Gastrointestinal: No problems Genitourinary: No problems Musculoskeletal: No problems Neurological: No problems Skin: No problems Vital Signs - Temperature Temperature: 97.6 F Temperature Source: Temporal Artery Scan - Pulse Pulse Oximetery Pulse Rate: 81 Pulse Assessment Method: Pulse Oximetry - Respirations Respiratory Rate: 18 Oxygen Delivery Method: Room Air O2 Sat by Pulse Oximetry: 97 - Blood Pressure Right Arm Blood Pressure: 109/62 Blood Pressure Mean: 77 Blood Pressure Source: Automatic Cuff Medical Screen Scoring - Cervical Exam Dilation (cm): 2.5 Effacement (%): 50 Station: -2 Membranes: Intact - Uterine Contractions Frequency From (mins): 3 Frequency To (mins): 6 Duration From (seconds): 40 Duration To (seconds): 60 Intensity: Mild Resting: Soft to palpation - Assessment - Baby A Baseline FHR: 125 Heart Rate - NICHD Category: Category I (Normal) NST: Reactive Physician Notification - Physician Notified Physician Notified Date: 07/21/22 Physician Notified Time: 02:46 Physician: Keiko Aranda New Order Received: Yes - Notification Comment Comment: Dr. Aranda called, report given on maternal and status, c/o contractions. for several hours. Pt is only uncomfortable occassionally and is gustabo every. 3-6mins. NST is reactive and vitals are all WNL. SVE is 2.5/50/-2 and unchanged after an. hour. Maternal Triage Index - Maternal Triage Index Presenting for scheduled procedure w/no complaint: No - Stat/Priority 1 Stat Priority 1: No - Urgent/Priority 2 Urgent Priority 2: No - Prompt/Priority 3 Prompt Priority 3: No - Non-Urgent/Priority 4 Non-Urgent Priority 4: Yes Criteria Met for Priority 4: 37 6/7 wks, cx 3-6mins, not consistently uncomfor table Disposition - Disposition OB Disposition: Discharge to home Discharge Date: 07/21/22 Discharge Time: 02:50 I agree with the RN Medical Screening Exam: Yes Case reviewed; plan agreed upon as documented in EMR&OBIX.: Yes Diagnosis: PRIMARY INADEQUATE CONTRACTIONS
== END 2022-07-21 02:50 | disposition home or self-care (01) ==
LOC: FBPOP 01:36
PROVIDERS: ATTEND Obstetrics & Gynecology
DX: O62.0 Primary inadequate contractions (principal); Z3A.37 37 weeks gestation of pregnancy; F17.200 Nicotine dependence, unspecified, uncomplicated
CPT/HCPCS: 59025; G0463; 99213

== ENCOUNTER 2022-07-31 15:55 | Outpatient (CLI) | payer OTHER ==
[2022-07-31 17:28] VITALS: BP 114/76; PULSE 107; RESP 16; TEMP 97.8
[2022-07-31 17:59] LABS: Amphetamine Screen,Urine Not Detected (NotDetected); Barbiturate Screen,Urine Not Detected (NotDetected); Benzodiazepines Screen,Urine Not Detected (NotDetected); Cocaine Screen,Urine Not Detected (NotDetected); Methadone Screen, Urine Not Detected (NotDetected); Opiate Screen,Urine Not Detected (NotDetected); Oxycodone Screen, Urine Not Detected (NotDetected); Phencyclidine Screen,Urine Not Detected (NotDetected); Tricyclic Antidepressant,Urine Not Detected (NotDetected); Urn Cannabinoid Scrn Detected (NotDetected)
--- NOTE | 2022-08-01 06:55 | P.MSEPDOC ---
Presenting Problems - Arrival Data Date of Arrival on Unit: 07/31/22 Time of Arrival on Unit: 15:55 Mode of Transport: Wheelchair - Complaint OB-Reason for Admission/Chief Complaint: Possible Onset of Labor, Rule Out SROM Medical History - Information : 4 Para: 2 Term: 2 : 0 Abortions: Spontaneous or Elective: 1 Number of Living Children: 2 - Gestational Age Gestational Age by MIAH (wks/days): 39 Weeks and 2 Days - History Complications: Smoker, Hx. Substance Abuse Comment: history THC use Review of Systems - Review of Systems Constitutional: No problems Breast: No problems ENT: No problems Cardiovascular: No problems Respiratory: No problems Gastrointestinal: No problems Genitourinary: No problems Musculoskeletal: No problems Neurological: No problems Skin: No problems Vital Signs - Temperature Temperature: 97.8 F Temperature Source: Temporal Artery Scan - Pulse Right Sitting Pulse Rate: 107 Pulse Assessment Method: Automatic Cuff - Respirations Respiratory Rate: 16 Oxygen Delivery Method: Room Air - Blood Pressure Right Arm Blood Pressure: 114/76 Blood Pressure Mean: 88 Blood Pressure Source: Automatic Cuff Medical Screen Scoring - Cervical Exam Dilation (cm): 3.5 Effacement (%): 70 Station: -2 Membranes: Intact - Uterine Contractions Intensity: Mild Resting: Soft to palpation - Assessment - Baby A Baseline FHR: 135 Heart Rate - NICHD Category: Category I (Normal) NST: Reactive Physician Notification - Physician Notified Physician Notified Date: 07/31/22 Physician Notified Time: 17:59 Physician: Carmelo Best New Order Received: Yes (d/c home) Maternal Triage Index - Non-Urgent/Priority 4 Non-Urgent Priority 4: Yes Criteria Met for Priority 4: reactive nst, irregular contractions, intact membranes, no change in cervix in 3 hours Disposition - Disposition OB Disposition: Discharge to home, Written follow up instructions reviewed Discharge Date: 07/31/22 Discharge Time: 19:15 I agree with the RN Medical Screening Exam: Yes Case reviewed; plan agreed upon as documented in EMR&OBIX.: Yes Diagnosis: FALSE LABOR AT OR AFTER 37 COMPLETED WEEKS OF GESTATION (Patient presents to triage with complaints of leaking of fluid. Patient has no gross rupture membranes and amnio sure is negative. Patient was having some contractions therefore she was watched for approximately 2-3 hours found to have no significant cervical change. heart tones are reactive. At this point there is no evidence of maternal compromise and she is felt to be stable for discharge home follow up with Dr. Pimentel. Of note patient did have positive THC screen which she admitted to using.)
== END 2022-07-31 19:15 | disposition home or self-care (01) ==
LOC: FBPOP 15:55
PROVIDERS: ATTEND Obstetrics & Gynecology
DX: O47.1 False labor at or after 37 completed weeks of gestation (principal); O99.333 Smoking (tobacco) complicating pregnancy, third trimester; F17.200 Nicotine dependence, unspecified, uncomplicated; Z3A.39 39 weeks gestation of pregnancy
CPT/HCPCS: 59025; 80306; G0463; 99213

== ENCOUNTER 2022-08-08 05:55 | Inpatient (IN) | payer OTHER ==
--- NOTE | 2022-08-07 17:15 | P.HPOB ---
History of Present Illness H&P Date: 08/07/22 Chief Complaint: Induction of labor This is a 31 y.o. female, 5, para 2, with an estimated date of confinement of 08/05/2022, estimated gestational age of 40-3/7 weeks, who presents for induction of labor. She admits to good movement and irregular contractions. course has been complicated by maternal tachycardia and she has seen Dr. Negro and is on Metoprolol for this. labs: GC/Chlamydia/Trich-neg Hepatitis B surface antigen-neg RPR-NR Onvupir-xyp-wcihqg Blood type-O+ Antibody screen-neg Hemoglobin-10.9 Random glucose-80 1 hr. GTT-127 GBS-neg OB Hx: . History of 2 miscarriages and 2 vaginal deliveries [place] Hx: History of genital warts, treated in past Social Hx: Single, does industrial cleaning. Review of Systems Constitutional: Denies chills, Denies fever Eyes: denies blurred vision, denies pain Ears, nose, mouth and throat: Reports headache, Denies sore throat Cardiovascular: Denies chest pain, Denies shortness of breath Respiratory: Denies cough Gastrointestinal: Reports abdominal pain (irregular contractions) Genitourinary: Reports pelvic pain, Reports Musculoskeletal: Reports low back pain Integumentary: Denies pruritus, Denies rash Neurological: Denies numbness, Denies weakness Psychiatric: Reports anxiety, Reports depression Past Medical History Past Medical History: Hypertension Additional Past Medical History / Comment(s): hypoglycemia, bicuspid aortic heart valve-monitored by SIGIFREDO Negro, took BP med during last but not needed since History of Any Multi-Drug Resistant Organisms: None Reported Additional Past Surgical History / Comment(s): wisdom teeth removed; D&C Past Anesthesia/Blood Transfusion Reactions: No Reported Reaction Past Psychological History: Anxiety, Depression Smoking Status: Current every day smoker, Vaper Past Alcohol Use History: None Reported Past Drug Use History: Marijuana (History prior to ) - Past Family History Mother Family Medical History: Hypertension Medications and Allergies Home Medications Medication Instructions Recorded Confirmed Type Pnv No.95/Ferrous Fum/Folic AC 1 each PO DAILY 08/01/21 07/31/22 History [ Multivitamin Tablet] Metoprolol Tartrate 25 mg PO BID 06/23/22 07/31/22 History Allergies Allergy/AdvReac Type Severity Reaction Status Date / Time No Known Allergies Allergy Verified 07/31/22 16:09 Exam Osteopathic Statement: *. No significant issues noted on an osteopathic structural exam other than those noted in the History and Physical/Consult. HEENT: within normal limits Heart: regular rate and rhythm Lungs: clear to auscultation bilaterally Abdomen: , non-tender Cervix: 3 cm/80%/-2 heart tones: 140's by doppler Extremities: neg. Enedina's Assessment and Plan (1) 40 weeks gestation of Status: Acute Code(s): Z3A.40 - 40 WEEKS GESTATION OF SNOMED Code(s): 89202332 Plan: Admission for induction of labor. Expectant management. Epidural anesthesia if desired.
[2022-08-08] MEDS ORDERED: OXYTOCIN 10 UNIT/ML 1 ML VIAL IM PRN (06:13)
[2022-08-08] MEDS ORDERED: CARBOPROST TROMETHAMINE 250 MCG/ML 1 ML AMP IM PRN (06:13)
[2022-08-08] MEDS ORDERED: METHYLERGONOVINE 0.2 MG/ML 1 ML AMP IM PRN (06:13)
[2022-08-08] MEDS ORDERED: OXYTOCIN 30 UNITS/500 ML NS 30 UNIT in SALINE 1 500ML.BAG IV SCH ×2 (06:13→13:08)
[2022-08-08] MEDS ORDERED: LIDOCAINE 0.5% (PF) 5 MG/ML (50 ML SDV) SQ PRN (06:13)
[2022-08-08] MEDS ORDERED: TRANEXAMIC ACID IN NACL,ISO-OS 1,000 MG in EMPTY BAG 1 BAG IV PRN (06:13)
[2022-08-08] MEDS ORDERED: miSOPROStoL 200 MCG TAB PO PRN (06:13)
[2022-08-08] MEDS ORDERED: LIDOCAINE 1% (10MG/ML) FOR IV START INTRADERMA PRN (06:13)
[2022-08-08] MEDS ORDERED: TERBUTALINE 1 MG/ML VIAL SQ PRN (06:13)
[2022-08-08 06:26] VITALS: RESP 16
[2022-08-08] MEDS: LACTATED RINGERS 1,000 ML IV SCH ×2 (06:28→09:37)
[2022-08-08 07:11] LABS: Basophils # (A) 0.1 k/uL (0-0.2); Basophils % (A) 1 %; Eosinophils # (A) 0.1 k/uL (0-0.7); Eosinophils % (A) 1 %; HCT 36.3 % (34.0-46.0); HGB 12.2 gm/dL (11.4-16.0); Lymphocytes # (A) 1.9 k/uL (1.0-4.8); Lymphocytes % (A) 13 %; MCHC 33.5 g/dL (31.0-37.0); MCV 89.7 fL (80.0-100.0); Monocytes # (A) 0.6 k/uL (0-1.0); Monocytes % (A) 4 %; Neutrophils # (A) 11.7 k/uL (1.3-7.7); Neutrophils % (A) 80 %; Platelet Count 152 k/uL (150-450); RBC 4.05 m/uL (3.80-5.40); WBC 14.6 k/uL (3.8-10.6)
[2022-08-08] MEDS ORDERED: BUPIVACAINE (PF) 0.25% 30 ML VIAL ONE (08:17)
[2022-08-08] MEDS ORDERED: fentaNYL (PF) 50 MCG/ML 5 ML AMP ONE (08:17)
[2022-08-08] MEDS ORDERED: SODIUM CHLORIDE 0.9% 100 ML BAG ONE (08:17)
[2022-08-08 09:23] LABS: Amphetamine Screen,Urine Not Detected (NotDetected); Barbiturate Screen,Urine Not Detected (NotDetected); Benzodiazepines Screen,Urine Not Detected (NotDetected); Cocaine Screen,Urine Not Detected (NotDetected); Methadone Screen, Urine Not Detected (NotDetected); Opiate Screen,Urine Not Detected (NotDetected); Oxycodone Screen, Urine Not Detected (NotDetected); Phencyclidine Screen,Urine Not Detected (NotDetected); Tricyclic Antidepressant,Urine Not Detected (NotDetected); Urn Cannabinoid Scrn Detected (NotDetected)
[2022-08-08] MEDS ORDERED: BENZOCAINE/MENTHOL SPRAY 1 GM/SPRAY AEROSOL TOPICAL PRN (13:08)
[2022-08-08] MEDS ORDERED: HYDROCORTISONE 2.5% RECTAL CREAM 30 GM TUBE RECTAL PRN (13:08)
[2022-08-08] MEDS ORDERED: ZOLPIDEM 5 MG TAB PO PRN (13:08)
[2022-08-08] MEDS ORDERED: PRENATAL VIT-IRON-FOLIC ACID 1 EACH TABLET PO SCH (13:08)
[2022-08-08] MEDS ORDERED: ACETAMINOPHEN TAB 325 MG TAB PO PRN (13:08)
[2022-08-08] MEDS ORDERED: MEASLES-MUMPS-RUBELLA VACC/PF 12,500 UNIT/0.5 ML VIAL SQ ONE (13:08)
[2022-08-08] MEDS ORDERED: LANOLIN CREAM 5 GM TUBE TOPICAL PRN (13:08)
[2022-08-08] MEDS ORDERED: diphenhydrAMINE 25 MG CAP PO PRN (13:08)
[2022-08-08] MEDS ORDERED: diphenhydrAMINE 50 MG CAP PO PRN (13:08)
[2022-08-08] MEDS ORDERED: SIMETHICONE 80 MG CHEWABLE PO PRN (13:08)
[2022-08-08] MEDS ORDERED: diphenhydrAMINE 50 MG/ML 1 ML VIAL IVP PRN ×2 (13:08)
--- NOTE | 2022-08-08 13:24 | P.PROBDLV ---
Vaginal Delivery Note - . Vaginal Delivery Note: The patient progressed to complete dilation after oxytocin induction of labor and artificial rupture members with clear fluid noted. She did receive epidural anesthesia. Once reaching complete, she began pushing. 's head came to a crown. With one further push, the 's head delivered across the perineum followed by the anterior shoulder and a nuchal posterior arm. Nose and mouth were bulb suctioned. With one remaining push, the remainder the easily delivered reducing nuchal cord times one around the body with delivery. Infant was placed on mother's abdomen and cord was clamped and cut after allowing the cord to finish pulsating. Infant was taken for evaluation and a viable female was noted with scores of 9 at 1 minute and 9 at 5 minutes and infant weight of 8 lbs. 2 oz. Placenta delivered shortly thereafter, intact, with a three-vessel cord. Uterus contracted fairly well after oxytocin was given and uterine massage was carried out. Inspection of the perineum revealed no perineal lacerations. She did have a small abrasion that was hemostatic. Estimated blood loss is approximately 150 mL's. Both mother and are in stable condition.
[2022-08-08] MEDS: METOPROLOL TARTRATE 25 MG TAB PO SCH ×2 (14:40→21:18)
[2022-08-08] MEDS: IBUPROFEN 600 MG TAB PO PRN (15:26)
[2022-08-08] MEDS ORDERED: SENNOSIDES-DOCUSATE SODIUM 1 EACH TAB PO SCH (20:00)
[2022-08-09] MEDS: IBUPROFEN 600 MG TAB PO PRN ×2 (03:48→10:08)
[2022-08-09] MEDS: METOPROLOL TARTRATE 25 MG TAB PO SCH (08:31)
--- NOTE | 2022-08-09 09:00 | P.DS ---
Providers Date of admission: 08/08/22 05:55 Expected date of discharge: 08/09/22 Attending physician: Peggy Pimentel Primary care physician: Stated None - Discharge Diagnosis(es) (1) 40 weeks gestation of Current Visit: No Status: Acute Hospital Course: This is a 31-year-old female 4 para 2 at 40-3/7 weeks who presented for induction of labor. She underwent oxytocin induction of labor and delivered vaginally a viable female with scores of 9 at 1 minute and 9 at 5 minutes and weight of 8 lbs. 2 oz. Her course was uncomplicated. Lochia is decreasing. Pain is been fairly well-controlled. Vital signs are stable. Abdomen is soft with fundus firm and nontender. Extremities show negative Homans. Impression is status post vaginal delivery day #1. Plan is to discharge home today. Routine instructions are given. She is advised to call the office if she has any further questions or concerns prior to her appointment time. She will be given a prescription for ibuprofen. She has a breast pump. Procedures: Oxytocin induction of labor Spontaneous vaginal delivery of a viable female infant on 08/08/2022 Patient Condition at Discharge: Stable Plan - Discharge Summary New Discharge Prescriptions: Continue Pnv No.95/Ferrous Fum/Folic AC [ Multivitamin Tablet] 1 each PO DAILY Metoprolol Tartrate 25 mg PO BID Discharge Medication List Pnv No.95/Ferrous Fum/Folic AC [ Multivitamin Tablet] 1 each PO DAILY 08/01/21 [History] Metoprolol Tartrate 25 mg PO BID 06/23/22 [History] Follow up Appointment(s)/Referral(s): Peggy Pimentel DO [Doctor of Osteopathic Medicine] - 09/18/22 11:30 am Activity/Diet/Wound Care/Special Instructions: Instructions 1. Do not begin any exercise program for 3 weeks. 2. Do not resume sexual relations for 3 weeks or longer if uncomfortable. 3. You may take tub baths or showers at any time. 4. You may use tampons if desired after 3 weeks. 5. Keep the area of episiotomy (stitches) clean and dry. 6. If you are not nursing, wear a good fitting, supportive bra during the day and limit fluid intake for at least 1 week to prevent breast engorgement. 7. Call the office, [phone], within the next week to make appointment for your 6 week checkup if it has not already been made. 8. Report any of the following occurrences to the doctor promptly: a. Heavy, excessive bleeding b. Chills, fever c. Burning or frequency of urination d. Pain or redness and breasts if nursing e. Increasing pain or swelling in episiotomy (stitches). In addition to the above instructions, the following additional should be followed: 1. No heavy lifting or straining (exercising) until after 6 week checkup. 2. Keep abdominal incision clean and dry: You may wear a dressing if more comfortable. 3. Make office appointment for 10 days after going home or as instructed by her doctor. Discharge Disposition: HOME SELF-CARE
[2022-08-09 09:01] LABS: Basophils # (A) 0.1 k/uL (0-0.2); Basophils % (A) 1 %; Eosinophils # (A) 0.1 k/uL (0-0.7); Eosinophils % (A) 1 %; HCT 36.1 % (34.0-46.0); Lymphocytes # (A) 1.7 k/uL (1.0-4.8); Lymphocytes % (A) 15 %; MCH 30.7 pg (25.0-35.0); MCHC 33.3 g/dL (31.0-37.0); Mean Platelet Volume 9.8; Monocytes # (A) 0.6 k/uL (0-1.0); Monocytes % (A) 5 %; Neutrophils # (A) 8.8 k/uL (1.3-7.7); Neutrophils % (A) 77 %; Platelet Count 122 k/uL (150-450); RBC 3.92 m/uL (3.80-5.40); RDW 13.6 % (11.5-15.5); WBC 11.4 k/uL (3.8-10.6)
[2022-08-09 09:27] VITALS: BP 118/75; PULSE 81; TEMP 98.4
== END 2022-08-09 14:30 | disposition home or self-care (01) | DRG 806 ==
LOC: 4FBP 05:55
PROVIDERS: ADMIT Obstetrics & Gynecology; ATTEND Obstetrics & Gynecology
PROC: 10907ZC Drainage of Amniotic Fluid, Therapeutic from Products of Conception, Via Natural or Artificial Opening (ICD-10-PCS; principal; 2022-08-08)
PROC: 10E0XZZ Delivery of Products of Conception, External Approach (ICD-10-PCS; principal; 2022-08-08)
PROC: 3E033VJ Introduction of Other Hormone into Peripheral Vein, Percutaneous Approach (ICD-10-PCS; principal; 2022-08-08)
DX: O99.42 Diseases of the circulatory system complicating childbirth (principal); O10.92 Unspecified pre-existing hypertension complicating childbirth; Z37.0 Single live birth; Q23.1 Congenital insufficiency of aortic valve; O98.32 Other infections with a predominantly sexual mode of transmission complicating childbirth; A63.0 Anogenital (venereal) warts; O99.334 Smoking (tobacco) complicating childbirth; F17.290 Nicotine dependence, other tobacco product, uncomplicated; O99.344 Other mental disorders complicating childbirth; R00.0 Tachycardia, unspecified; F32.A Depression, unspecified; F41.9 Anxiety disorder, unspecified; O16.4 Unspecified maternal hypertension, complicating childbirth; O69.81X0 Labor and delivery complicated by cord around neck, without compression, not applicable or unspecified; O69.89X0 Labor and delivery complicated by other cord complications, not applicable or unspecified; O71.89 Other specified obstetric trauma; Z79.899 Other long term (current) drug therapy; Z86.59 Personal history of other mental and behavioral disorders; Z86.19 Personal history of other infectious and parasitic diseases; Z3A.40 40 weeks gestation of pregnancy
CPT/HCPCS: 80306; 85025; 86850; 86900; 86901; 90471; 90707